=== PATIENT | female | born 1945 | race Caucasian/White ===

== ENCOUNTER 2016-07-12 21:43 | Emergency (ER) | payer OTHER ==
[~2016-07-12] VITALS: Ht 162.6 cm; Wt 81.6 kg
[~2016-07-12 21:43] MED LIST: ASPI325T25 PO; CALC500T87 PO; GABA-494 PO; METH500T6 PO; MORP60TA25 PO; MUPI2OIN EX; TOPI50TA53 PO
[2016-07-12 22:24] LABS: Basophils # (auto) 0 uL; Basophils % (auto) 0.5 % (0.0-2.0); Eosinophils # (auto) 0.1 uL; Eosinophils % (auto) 1.2 % (0.0-7.0); Hematocrit 40.4 % (36.0-46.0); Lymphocytes # (auto) 1.3 uL; Lymphocytes % (auto) 25.4 % (10.0-50.0); Mean Corpuscular Hemoglobin 28.6 pg (28.0-32.0); Mean Corpuscular Hgb Conc. 32.2 g/dL (32.0-36.0); Mean Corpuscular Volume 88.8 fL (80.0-100.0); Mean Platelet Volume 6.5 fL (7.4-10.4); Monocytes # (auto) 0.2 uL; Monocytes % (auto) 4.6 % (0.0-12.0); Neutrophils # (auto) 3.4 uL; Neutrophils % (auto) 68.3 % (37.0-80.0); Platelet Count (auto) 373 10^3/uL (140-450); Red Cell Distribution Width 13.1 % (11.6-16.0)
[2016-07-12] MEDS ORDERED: ONDANSETRON HCL 4 MG/2 ML VIAL IV ONE (22:45)
[2016-07-12] MEDS ORDERED: SODIUM CHLORIDE 0.9% 500 ML IV ONE (22:45)
[2016-07-12 22:46] LABS: Albumin 3.8 g/dL (3.4-5.0); BUN/Creatinine Ratio 30.3; Bilirubin, Total 0.2 mg/dL (0.2-1.0); Calcium 10.1 mg/dL (8.5-10.1); Magnesium 2.3 mg/dL (1.6-2.6); Potassium 4.3 mmol/L (3.5-5.1); Total Protein 8.5 g/dL (6.4-8.2)
[2016-07-12] MEDS ORDERED: HYDROmorphone HCL 2 MG/ML VL ONE (23:12)
[2016-07-12] MEDS ORDERED: HYDROmorphone HCL 2 MG/ML VL IV ONE (23:30)
[2016-07-13] MEDS ORDERED: SODIUM CHLORIDE 0.9% 1,000 ML IV ONE
[2016-07-13 01:09] VITALS: BP 120/66
== END 2016-07-13 02:13 | disposition home or self-care (01) ==
LOC: EDBD 21:43 → ER 21:51
DX: R11.2 Nausea with vomiting, unspecified (principal); J45.909 Unspecified asthma, uncomplicated; I12.9 Hypertensive chronic kidney disease with stage 1 through stage 4 chronic kidney disease, or unspecified chronic kidney disease; N18.9 Chronic kidney disease, unspecified; E78.5 Hyperlipidemia, unspecified; M54.9 Dorsalgia, unspecified; G89.29 Other chronic pain; Z90.710 Acquired absence of both cervix and uterus; Z90.89 Acquired absence of other organs; Z88.6 Allergy status to analgesic agent; Z79.899 Other long term (current) drug therapy; Z79.82 Long term (current) use of aspirin; J44.9 Chronic obstructive pulmonary disease, unspecified; R51 Headache
CPT/HCPCS: 36415; 70450; 72125; 80053; 83735; 84484; 85025; 85049; 93005; 96361; 96374; 96375; 99285; J1170; J2405; J7030; J7040; 96360

== ENCOUNTER 2017-05-18 08:49 | Emergency (ER) | payer OTHER ==
[~2017-05-18] VITALS: Ht 160 cm; Wt 59.0 kg
[2017-05-18 11:35] LABS: Eosinophils # (auto) 0.1 uL; Hemoglobin 10.7 g/dL (12.2-16.2); Mean Corpuscular Hemoglobin 22.6 pg (28.0-32.0); Monocytes # (auto) 0.5 uL; White Blood Cell 5.2 10^3/uL (4.4-10.8)
[2017-05-18 11:37] LABS: Albumin 3.7 g/dL (3.4-5.0); Alkaline Phosphatase 120 U/L (45-117); Anion Gap 12 (5-15); Aspartate Aminotransferase 12 U/L (15-37); BUN/Creatinine Ratio 19.6; Bilirubin, Total 0.3 mg/dL (0.2-1.0); Blood Urea Nitrogen 22 mg/dL (7-18); Carbon Dioxide 25 mmol/L (21-32); Chloride 98 mmol/L (98-107); GFR African American 62 mL/min; GFR Non-African American 51 mL/min; Glucose 102 mg/dL (74-106); Magnesium 2.1 mg/dL (1.6-2.6); Potassium 3.3 mmol/L (3.5-5.1); Sodium 135 mmol/L (136-145); Total Protein 8.4 g/dL (6.4-8.2)
[2017-05-18 11:39] LABS: Basophils # (auto) 0.1 uL; Eosinophils % (auto) 1.1 % (0.0-7.0); Hematocrit 33.7 % (36.0-46.0); Lymphocytes # (auto) 1.8 uL; Lymphocytes % (auto) 34.4 % (10.0-50.0); Mean Corpuscular Hgb Conc. 31.6 g/dL (32.0-36.0); Mean Corpuscular Volume 71.4 fL (80.0-100.0); Mean Platelet Volume 6.6 fL (6.9-10.8); Monocytes % (auto) 9.4 % (0.0-12.0); Neutrophils # (auto) 2.8 uL; Neutrophils % (auto) 54.1 % (37.0-80.0); Nucleated Red Blood Cells % 0.3 %; Platelet Count (auto) 313 10^3/uL (140-450); Red Cell Distribution Width 18.9 % (11.8-14.3)
[2017-05-18] MEDS ORDERED: HYDROcodone-ACET 5/325MG TAB PO ONE (11:45)
[2017-05-18] MEDS ORDERED: LORazepam 0.5 MG TAB PO ONE (11:45)
[2017-05-18 13:03] LABS: B-Type Natriuretic Peptide 21.35 pg/mL (0-100)
[2017-05-18] MEDS ORDERED: IOHEXOL 350 MG/ML 100ML IJ ONE (13:08)
[2017-05-18 14:49] VITALS: BP 116/73
== END 2017-05-18 15:51 | disposition home or self-care (01) ==
LOC: ER 08:49 → EDBD 08:49 → ER 15:51
DX: R07.9 Chest pain, unspecified (principal); F41.9 Anxiety disorder, unspecified; I11.0 Hypertensive heart disease with heart failure; I50.9 Heart failure, unspecified; E78.5 Hyperlipidemia, unspecified; Z88.6 Allergy status to analgesic agent; Z79.899 Other long term (current) drug therapy
CPT/HCPCS: 36415; 71010; 71275; 80053; 83735; 83880; 84484; 85025; 85379; 99285; Q9967

== ENCOUNTER 2018-03-06 14:11 | Emergency (ER) | payer MEDICARE ==
[~2018-03-06] VITALS: Ht 165.1 cm; Wt 56.7 kg
[~2018-03-06 14:11] MED LIST changes: -GABA-494 PO; +GABA100C9 PO
[2018-03-06 15:53] LABS: Basophils # (auto) 0 uL; Basophils % (auto) 0.5 % (0.0-2.0); Eosinophils # (auto) 0.1 uL; Eosinophils % (auto) 1.4 % (0.0-7.0); Hematocrit 42.2 % (36.0-46.0); Hemoglobin 13.9 g/dL (12.2-16.2); Lymphocytes # (auto) 1.1 uL; Lymphocytes % (auto) 31.1 % (10.0-50.0); Mean Corpuscular Hemoglobin 31.7 pg (28.0-32.0); Mean Corpuscular Hgb Conc. 32.9 g/dL (32.0-36.0); Mean Corpuscular Volume 96.5 fL (80.0-100.0); Monocytes # (auto) 0.2 uL; Monocytes % (auto) 6.4 % (0.0-12.0); Neutrophils # (auto) 2.1 uL; Neutrophils % (auto) 60.6 % (37.0-80.0); Nucleated Red Blood Cells % 0.1 %; Platelet Count (auto) 184 10^3/uL (140-450); Red Blood Cells 4.37 10^6/uL (4.0-5.20); Red Cell Distribution Width 14.4 % (11.8-14.3); White Blood Cell 3.5 10^3/uL (4.4-10.8)
[2018-03-06 16:05] LABS: Alanine Aminotransferase 11 U/L (13-56); Albumin 3.4 g/dL (3.4-5.0); Alkaline Phosphatase 80 U/L (45-117); Anion Gap 5 (5-15); Aspartate Aminotransferase 15 U/L (15-37); BUN/Creatinine Ratio 19.5; Bilirubin, Total 0.3 mg/dL (0.2-1.0); Blood Urea Nitrogen 16 mg/dL (7-18); Calcium 8.8 mg/dL (8.5-10.1); Carbon Dioxide 26 mmol/L (21-32); Chloride 109 mmol/L (98-107); GFR African American 88 mL/min; GFR Non-African American 73 mL/min; Glucose 87 mg/dL (74-106); Magnesium 2.2 mg/dL (1.6-2.6); Sodium 140 mmol/L (136-145); Total Protein 7.1 g/dL (6.4-8.2)
[2018-03-06] MEDS ORDERED: SODIUM CHLORIDE 0.9% 500 ML IV ONE (17:15)
[2018-03-06] MEDS ORDERED: LORazepam 2MG/ML-1ML VIAL IV ONE (17:15)
[2018-03-06 17:54] LABS: Urine Bacteria FEW /hpf (None Seen); Urine Blood Negative /uL (Negative); Urine Specific Gravity 1.014 (1.001-1.035); Urine WBC 2 /hpf (0 - 5)
[2018-03-06 19:30] VITALS: BP 150/99
[2018-03-06] MEDS ORDERED: LABETALOL HCL 5 MG/ML ML 20ML VIAL IV ONE (19:30)
== END 2018-03-06 20:44 | disposition home or self-care (01) ==
LOC: ER 14:11
DX: R53.1 Weakness (principal); R42 Dizziness and giddiness; F41.9 Anxiety disorder, unspecified; I11.0 Hypertensive heart disease with heart failure; I50.9 Heart failure, unspecified; F32.9 Major depressive disorder, single episode, unspecified; E78.5 Hyperlipidemia, unspecified; Z90.710 Acquired absence of both cervix and uterus
CPT/HCPCS: 36415; 70450; 71046; 80053; 81001; 83735; 84484; 85025; 93005; 96361; 96374; 96375; 99285; J2060; J7060

== ENCOUNTER 2018-03-17 09:08 | Emergency (ER) | payer MEDICARE ==
[~2018-03-17] VITALS: Ht 165.1 cm; Wt 71.2 kg
[2018-03-17] MEDS ORDERED: SODIUM CHLORIDE 0.9% 1,000 ML IV ONE (09:16)
[2018-03-17] MEDS ORDERED: ONDANSETRON HCL 4 MG/2 ML VIAL IV ONE (09:30)
[2018-03-17 10:11] LABS: Basophils # (auto) 0 uL; Basophils % (auto) 0.4 % (0.0-2.0); Eosinophils # (auto) 0.1 uL; Eosinophils % (auto) 1.3 % (0.0-7.0); Lymphocytes # (auto) 1.6 uL; Lymphocytes % (auto) 30.8 % (10.0-50.0); Mean Corpuscular Hemoglobin 33.1 pg (28.0-32.0); Mean Corpuscular Volume 97.1 fL (80.0-100.0); Monocytes # (auto) 0.5 uL; Monocytes % (auto) 9.1 % (0.0-12.0); Neutrophils # (auto) 3.1 uL; Neutrophils % (auto) 58.4 % (37.0-80.0); Nucleated Red Blood Cells % 0.1 %; Platelet Count (auto) 179 10^3/uL (140-450); Red Blood Cells 4.22 10^6/uL (4.0-5.20); Red Cell Distribution Width 14.2 % (11.8-14.3); White Blood Cell 5.3 10^3/uL (4.4-10.8)
[2018-03-17 10:38] LABS: Alanine Aminotransferase 13 U/L (13-56); Albumin 3.8 g/dL (3.4-5.0); Alkaline Phosphatase 87 U/L (45-117); Anion Gap 4 (5-15); Aspartate Aminotransferase 19 U/L (15-37); Bilirubin, Total 0.3 mg/dL (0.2-1.0); Blood Urea Nitrogen 17 mg/dL (7-18); Carbon Dioxide 28 mmol/L (21-32); Chloride 108 mmol/L (98-107); GFR African American 85 mL/min; GFR Non-African American 70 mL/min; Glucose 114 mg/dL (74-106); Potassium 3.7 mmol/L (3.5-5.1); Sodium 140 mmol/L (136-145); Total Protein 8.2 g/dL (6.4-8.2)
[2018-03-17 12:20] VITALS: BP 123/81
== END 2018-03-17 12:16 | disposition home or self-care (01) ==
LOC: EDBD 09:08 → ER 09:08
DX: G89.4 Chronic pain syndrome (principal); F03.90 Unspecified dementia, unspecified severity, without behavioral disturbance, psychotic disturbance, mood disturbance, and anxiety; R11.2 Nausea with vomiting, unspecified; E78.5 Hyperlipidemia, unspecified; I11.0 Hypertensive heart disease with heart failure; I50.9 Heart failure, unspecified; Z79.899 Other long term (current) drug therapy; Z79.82 Long term (current) use of aspirin; Z87.891 Personal history of nicotine dependence
CPT/HCPCS: 36415; 70450; 71045; 80053; 83880; 84484; 85025; 96361; 96374; 99285; J2405; J7030

== ENCOUNTER → 2018-07-20 | Outpatient (CLI) | payer MEDICARE ==
[2018-07-20 10:03] LABS: Basophils # (auto) 0 uL; Basophils % (auto) 0.7 % (0.0-2.0); Eosinophils # (auto) 0.1 uL; Eosinophils % (auto) 1.6 % (0.0-7.0); Hematocrit 40.9 % (36.0-46.0); Hemoglobin 13.9 g/dL (12.2-16.2); Lymphocytes # (auto) 1.1 uL; Lymphocytes % (auto) 32.2 % (10.0-50.0); Mean Corpuscular Hemoglobin 31.8 pg (28.0-32.0); Mean Corpuscular Hgb Conc. 33.9 g/dL (32.0-36.0); Mean Corpuscular Volume 93.9 fL (80.0-100.0); Monocytes # (auto) 0.3 uL; Monocytes % (auto) 8.8 % (0.0-12.0); Neutrophils # (auto) 1.9 uL; Neutrophils % (auto) 56.7 % (37.0-80.0); Nucleated Red Blood Cells % 0.1 %; Platelet Count (auto) 189 10^3/uL (140-450); Red Blood Cells 4.36 10^6/uL (4.0-5.20); Red Cell Distribution Width 14.2 % (11.8-14.3); White Blood Cell 3.4 10^3/uL (4.4-10.8)
[2018-07-20 10:08] LABS: Anion Gap 8 (5-15); BUN/Creatinine Ratio 19.3; Blood Urea Nitrogen 16 mg/dL (7-18); Calcium 9.3 mg/dL (8.5-10.1); Carbon Dioxide 25 mmol/L (21-32); Chloride 106 mmol/L (98-107); GFR African American > 60 mL/min; GFR Non-African American > 60 mL/min; Glucose 87 mg/dL (74-106); Sodium 139 mmol/L (136-145)
[2018-07-20 10:46] LABS: INR 0.92 (0.9-1.15); Partial Thromboplastin Time 23.8 sec (23.78-33.04); Prothrombin Time 9.9 sec (9.27-12.13)
== END | disposition home or self-care (01) ==
LOC: LAB 08:55
PROVIDERS: ATTEND Anesthesiology Pain Medicine
DX: R79.1 Abnormal coagulation profile (principal); Z79.01 Long term (current) use of anticoagulants
CPT/HCPCS: 36415; 80048; 85025; 85610; 85730

== ENCOUNTER 2018-11-04 16:12 | Inpatient (IN) | payer MEDICARE ==
[~2018-11-04] VITALS: Ht 167.6 cm; Wt 98.6 kg
[2018-11-04] MEDS ORDERED: clonazePAM 0.5 MG TAB PO ONE (18:45)
[2018-11-04 19:12] LABS: Basophils # (auto) 0 uL; Basophils % (auto) 0.5 % (0.0-2.0); Eosinophils # (auto) 0.1 uL; Eosinophils % (auto) 1.4 % (0.0-7.0); Hematocrit 44.4 % (36.0-46.0); Hemoglobin 15.1 g/dL (12.2-16.2); Lymphocytes # (auto) 1.1 uL; Lymphocytes % (auto) 17.8 % (10.0-50.0); Mean Corpuscular Hemoglobin 31.9 pg (28.0-32.0); Mean Corpuscular Hgb Conc. 33.9 g/dL (32.0-36.0); Mean Corpuscular Volume 93.9 fL (80.0-100.0); Monocytes # (auto) 0.7 uL; Monocytes % (auto) 10.8 % (0.0-12.0); Neutrophils # (auto) 4.5 uL; Neutrophils % (auto) 69.5 % (37.0-80.0); Nucleated Red Blood Cells % 0.1 %; Platelet Count (auto) 209 10^3/uL (140-450); Red Blood Cells 4.73 10^6/uL (4.0-5.20); White Blood Cell 6.4 10^3/uL (4.4-10.8)
[2018-11-04 19:26] LABS: INR 0.96 (0.9-1.15); Partial Thromboplastin Time 25.4 sec (23.78-33.04); Prothrombin Time 10.3 sec (9.27-12.13)
[2018-11-04 19:36] LABS: Chloride 103 mmol/L (98-107); Potassium 3.6 mmol/L (3.5-5.1); Sodium 138 mmol/L (136-145)
[2018-11-04 19:41] LABS: Albumin 3.9 g/dL (3.4-5.0); Anion Gap 10 (5-15); BUN/Creatinine Ratio 34.6; Blood Alcohol < 3.0 mg/dL (0-5); Blood Urea Nitrogen 55 mg/dL (7-18); Calcium 10.2 mg/dL (8.5-10.1); Carbon Dioxide 25 mmol/L (21-32); GFR African American 41 mL/min; GFR Non-African American 34 mL/min; Glucose 105 mg/dL (74-106)
[2018-11-04 19:55] LABS: Alanine Aminotransferase 14 U/L (13-56); Alkaline Phosphatase 99 U/L (45-117); Aspartate Aminotransferase 21 U/L (15-37); Bilirubin, Total 0.4 mg/dL (0.2-1.0); Total Protein 8.4 g/dL (6.4-8.2)
[2018-11-04] MEDS ORDERED: MORPHINE SULF INJ 2 MG/ML SYRINGE 1ML IV PRN (20:15)
[2018-11-04] MEDS ORDERED: ACETAMINOPHEN 500 MG TAB PO PRN (20:15)
[2018-11-04] MEDS ORDERED: NITROGLYCERIN 0.4 MG SL TAB SL PRN (20:15)
[2018-11-04] MEDS ORDERED: LACTULOSE 20Gm/30ML SOLN PO PRN (20:15)
[2018-11-04] MEDS ORDERED: ONDANSETRON HCL 4 MG/2 ML VIAL IV PRN (20:15)
[2018-11-04] MEDS: cefTRIAXone 1GM/50ML D5W 50 ML IV SCH (21:21)
[2018-11-04] MEDS: SODIUM CHLORIDE 0.9% 1,000 ML IV SCH (21:21)
[2018-11-04] MEDS ORDERED: ATORVASTATIN 20 MG TAB PO SCH (22:00)
[2018-11-04] MEDS ORDERED: PATIENTS OWN MEDICATION (Topiramate 50 MG) PO SCH (22:00)
[2018-11-04] MEDS ORDERED: GABAPENTIN 100 MG PO SCH (22:00)
[2018-11-04] MEDS ORDERED: MORPHINE SULFATE 60 MG PO SCH (22:00)
[2018-11-04] MEDS: CLINDAMYCIN 600MG IV 50 ML IV SCH (22:25)
[2018-11-04] MEDS: METOPROLOL TARTRATE 25 MG TAB PO SCH (22:28)
[2018-11-04] MEDS: TOPIRAMATE 25 MG TAB PO SCH (22:28)
[2018-11-04] MEDS: ATORVASTATIN 20 MG TAB PO SCH (22:29)
[2018-11-04] MEDS: GABAPENTIN 100 MG CAP PO SCH (22:29)
[2018-11-04 23:00] VITALS: BP 125/81
--- NOTE | 2018-11-04 23:00 | NUR ---
Telemetry admit from ER Patient admitted to Telemetry unit after SBAR received. Patient oriented to primary RN, unit, room, bed, and unit policies regarding patient care and visiting hours. Patient now on continuous telemetry monitoring, tele box # 17 and telemetry reading on arrival to unit is sinus rhythm. Patient weighed by bedscale and encouraged to call if they need something. Bed is in lowest position and locked. Call light within reach. Board updated. Bed alarm on. All questions and concerns addressed, patient verbalized understanding, but is partially confused.
[2018-11-04] MEDS: traMADol HCL 50 MG TAB PO PRN (23:24)
[2018-11-05] VITALS (7 sets, daily range): BP systolic 89–130; BP diastolic 47–65
[2018-11-05] MEDS: CARISOPRODOL 350 MG TAB PO PRN ×2 (00:04→11:35)
[2018-11-05] MEDS ORDERED: CYCL5TAB PO (00:17)
[2018-11-05] MEDS ORDERED: BACL20TA PO (00:17)
[2018-11-05] MEDS ORDERED: POM (00:17)
[2018-11-05] MEDS: GABAPENTIN 100 MG CAP PO SCH ×3 (05:00→21:36)
[2018-11-05] MEDS: traMADol HCL 50 MG TAB PO PRN ×2 (05:00→18:28)
[2018-11-05] MEDS: CLINDAMYCIN 600MG IV 50 ML IV SCH ×2 (05:01→14:15)
[2018-11-05 05:17] LABS: Alcohol, Urine < 3.0 mg/dL (0-5); Amphetamine Screen, Urine NEGATIVE (NEGATIVE); Barbiturate Scree,Urine NEGATIVE (NEGATIVE); Benzodiazephine Screen, Urine NEGATIVE (NEGATIVE); Cannabinoid Screen, Urine NEGATIVE (NEGATIVE); Cocaine Screen, Urine NEGATIVE (NEGATIVE); Opiate Scree,Urine NEGATIVE (NEGATIVE); Phencyclidine Screen, Urine NEGATIVE (NEGATIVE); Urine Bacteria NONE SEEN /hpf (None Seen); Urine Blood Negative /uL (Negative); Urine Specific Gravity 1.025 (1.001-1.035); Urine WBC 46 /hpf (0 - 5)
[2018-11-05 06:30] LABS: Albumin 3.2 g/dL (3.4-5.0); Calcium 8.9 mg/dL (8.5-10.1); Potassium 3.2 mmol/L (3.5-5.1)
[2018-11-05] MEDS: SODIUM CHLORIDE 0.9% 1,000 ML IV SCH ×2 (06:30→16:10)
[2018-11-05 06:33] LABS: BUN/Creatinine Ratio 41.3; Bilirubin, Total 0.6 mg/dL (0.2-1.0); Total Protein 6.5 g/dL (6.4-8.2)
--- NOTE | 2018-11-05 07:50 | NUR ---
REPORT REPORT RECEIVED FROM [facility] RN TO TEMPORARILY COVER FOR DAY SHIFT RN. Patient, awake and alert. No S/S of distress/SOB or pain. Instructed on POC and to call for assist PRN, will continue to monitor for changes Q1hr and PRN.
--- NOTE | 2018-11-05 09:09 | NUR ---
REPORT GIVEN TO RK QUINTERO
[2018-11-05] MEDS: cefTRIAXone 1GM/50ML D5W 50 ML IV SCH (09:26)
[2018-11-05] MEDS ORDERED: ENOXAPARIN SOD 40 MG/0.4 ML SYRINGE SC SCH (10:00)
[2018-11-05] MEDS: METOPROLOL TARTRATE 25 MG TAB PO SCH ×2 (10:00→21:37)
[2018-11-05] MEDS: PANTOPRAZOLE 40 MG TAB PO SCH (10:07)
[2018-11-05] MEDS: ASPirin-EC 325mg tab PO SCH (10:07)
--- NOTE | 2018-11-05 17:10 | NUR ---
IV insertion IV access obtained, via clean sterile technique by inserting 22 gauge catheter at after attempt(s). IV secured properly. No trauma to site. Patient tolerated well.
--- NOTE | 2018-11-05 18:44 | NUR ---
Override Golytely at this time, give to patient, instructed to drink 8 Oz every 15 mins untill patient has BM, patient verbalized understanding.
[2018-11-05] MEDS ORDERED: POTASSIUM CHL 10 Meq TABLET PO ONE (19:30)
--- NOTE | 2018-11-05 19:34 | NUR ---
Opening Shift Note Assumed care of patient, awake and alert x4. No S/S of distress/SOB or pain. Instructed on POC and to call for assistance PRN, will continue to monitor for changes Q1hr and PRN.
[2018-11-05] MEDS: ATORVASTATIN 20 MG TAB PO SCH (21:36)
[2018-11-05] MEDS: TOPIRAMATE 25 MG TAB PO SCH (21:36)
[2018-11-05] MEDS: TEMAZEPAM 15 MG CAP PO PRN (21:42)
--- NOTE | 2018-11-06 04:55 | NUR ---
Rounds Patient sleeping respirations even and unlabored. No S/S of distress/SOB or pain. Will continue to monitor changes q1hr and PRN.
[2018-11-06 05:00] VITALS: BP 100/60
[2018-11-06] MEDS: GABAPENTIN 100 MG CAP PO SCH ×3 (06:02→21:31)
[2018-11-06] MEDS: traMADol HCL 50 MG TAB PO PRN ×2 (06:12→12:56)
--- NOTE | 2018-11-06 09:00 | NUR ---
Opening Shift Note Assumed care of patient, awake and alert. No S/S of distress/SOB or pain. Instructed on POC and to call for assist PRN, will continue to monitor for changes Q1hr and PRN.
[2018-11-06] MEDS: PANTOPRAZOLE 40 MG TAB PO SCH (09:27)
[2018-11-06] MEDS: cefTRIAXone 1GM/50ML D5W 50 ML IV SCH (09:27)
[2018-11-06] MEDS: METOPROLOL TARTRATE 25 MG TAB PO SCH ×2 (09:27→21:30)
[2018-11-06] MEDS: ASPirin-EC 325mg tab PO SCH (09:27)
[2018-11-06 09:36] VITALS: BP 124/67
[2018-11-06] MEDS ORDERED: ENOXAPARIN SOD 40 MG/0.4 ML SYRINGE SC SCH (10:00)
[2018-11-06 12:46] VITALS: BP 105/59
[2018-11-06 13:15] LABS: Basophils # (auto) 0 uL; Basophils % (auto) 1.3 % (0.0-2.0); Eosinophils # (auto) 0.2 uL; Eosinophils % (auto) 5.4 % (0.0-7.0); Hematocrit 40.7 % (36.0-46.0); Hemoglobin 13.4 g/dL (12.2-16.2); Lymphocytes % (auto) 36.3 % (10.0-50.0); Mean Corpuscular Hemoglobin 31.6 pg (28.0-32.0); Mean Corpuscular Hgb Conc. 32.9 g/dL (32.0-36.0); Mean Corpuscular Volume 96.1 fL (80.0-100.0); Monocytes # (auto) 0.3 uL; Monocytes % (auto) 9.7 % (0.0-12.0); Neutrophils # (auto) 1.4 uL; Neutrophils % (auto) 47.3 % (37.0-80.0); Platelet Count (auto) 159 10^3/uL (140-450); Red Blood Cells 4.23 10^6/uL (4.0-5.20); Red Cell Distribution Width 14.1 % (11.8-14.3); White Blood Cell 2.9 10^3/uL (4.4-10.8)
[2018-11-06 13:30] LABS: BUN/Creatinine Ratio 32.6; Calcium 8.9 mg/dL (8.5-10.1); Potassium 4.2 mmol/L (3.5-5.1)
[2018-11-06 16:36] VITALS: BP 113/62
[2018-11-06] MEDS: ATORVASTATIN 20 MG TAB PO SCH (21:31)
[2018-11-06] MEDS: TOPIRAMATE 25 MG TAB PO SCH (21:31)
[2018-11-06 22:00] VITALS: BP 103/57
[2018-11-07 05:00] VITALS: BP 114/56
[2018-11-07] MEDS: GABAPENTIN 100 MG CAP PO SCH ×3 (06:54→22:40)
--- NOTE | 2018-11-07 07:50 | NUR ---
PT RESTING IN BED, PT REPORTS 8/10 PAIN IN BACK. PT IS A AND O X4. PT KNOWS NAME, , WHEREABOUTS AND THE PRESIDENT. PT ON MORPHINE PUMP, WILL CHECK PAIN MEDICATION ORDERS. PT INSTRUCTED TO USE CALL LIGHT FOR ASSISTANCE TO BEDSIDE COMMODE. PT AGREED. SPOKE WITH DR MASSEY, PT TO HAVE BILATERAL PERIPHERAL ANGIOGRAM TOMORROW, PT AWARE. WILL CONTINUE TO MONITOR.
[2018-11-07 08:00] VITALS: BP 124/80
[2018-11-07] MEDS: cefTRIAXone 1GM/50ML D5W 50 ML IV SCH (09:25)
[2018-11-07] MEDS: ASPirin-EC 325mg tab PO SCH (09:25)
[2018-11-07] MEDS: traMADol HCL 50 MG TAB PO PRN ×2 (09:25→15:33)
[2018-11-07] MEDS: METOPROLOL TARTRATE 25 MG TAB PO SCH ×2 (09:26→22:40)
[2018-11-07] MEDS: PANTOPRAZOLE 40 MG TAB PO SCH (09:26)
[2018-11-07] MEDS: SODIUM CHLORIDE 0.9% 1,000 ML IV SCH (09:27)
--- NOTE | 2018-11-07 10:11 | NUR ---
PT CALLED FOR ASSISTANCE TO COMMODE, HELPED PT TO COMMODE, PT VOIDED AND ASSISTED PT BACK TO BED.
[2018-11-07 12:32] VITALS: BP_SYST 111; BP_SYST 125; BP_DIAS 50; BP_DIAS 63
--- NOTE | 2018-11-07 13:00 | NUR ---
PT REPORTS SHE DIDN'T RECEIVE A LUNCH TRAY, CALLED DIETARY, LUNCH TRAY BROUGHT TO PATIENT, WILL CONTINUE TO MONITOR.
--- NOTE | 2018-11-07 15:49 | NUR ---
PT REPORTS SHE DOES NOT WANT PROCEDURE TOMORROW. SHE REPORTS, SHE'S "SORRY BUT SHE'S FEELING RUSHED AND OVERWHELMED." CONSENTS PRINTED AND IN CHART UNSIGNED, WILL CONTINUE TO MONITOR.
[2018-11-07 16:35] VITALS: BP 112/76
--- NOTE | 2018-11-07 19:10 | NUR ---
OPEN SHIFT NOTE PATIENT ALERT AND ORIENTED X4, ON ROOM AIR, LEFT HAND 22 GAUGE IS INTACT AND PATENT. COMMODE AT BEDSIDE. POC DISCUSSED AND QUESTIONS ANSWERED. BED IS LOCKED IN LOWEST POSITION WITH SIDE RAILS UP X2 FOR SAFETY. CALL LIGHT IS WITHIN REACH AND PATIENT ENCOURAGED TO CALL IF NEEDS ANYTHING. WILL CONTINUE TO ROUND Q1HR AND PRN
[2018-11-07 22:20] VITALS: BP 129/66
[2018-11-07] MEDS: ATORVASTATIN 20 MG TAB PO SCH (22:39)
[2018-11-07] MEDS: TOPIRAMATE 25 MG TAB PO SCH (22:40)
[2018-11-07] MEDS: TEMAZEPAM 15 MG CAP PO PRN (22:46)
[2018-11-08 04:45] VITALS: BP 111/55
--- NOTE | 2018-11-08 05:00 | NUR ---
IV removal IV DC'd with clean sterile technique, catheter fully intact. Pressure dressing applied to site. Patient tolerated well.
--- NOTE | 2018-11-08 05:15 | NUR ---
IV insertion IV access obtained, via clean sterile technique by inserting 22 gauge catheter in the right forearm after 2 attempt(s). IV secured properly. No trauma to site. Patient tolerated well.
[2018-11-08] MEDS: SODIUM CHLORIDE 0.9% 1,000 ML IV SCH (05:25)
[2018-11-08] MEDS: GABAPENTIN 100 MG CAP PO SCH ×3 (05:38→21:34)
[2018-11-08 06:38] LABS: INR 0.93 (0.9-1.15); Partial Thromboplastin Time 28.1 sec (23.78-33.04)
[2018-11-08] MEDS: traMADol HCL 50 MG TAB PO PRN ×3 (06:45→21:35)
--- NOTE | 2018-11-08 07:17 | NUR ---
PT A AND O X 4 RESTING IN BED. PT CONSENTS SIGNED AND PREOP IS TAKING PATIENT DOWN NOW FOR PROCEDURE, NO DISTRESS NOTED, WILL CONTINUE TO MONITOR.
[2018-11-08] MEDS ORDERED: IODIXANOL 320MG/ML 100ML BTL IV ONE ×2 (07:26→08:09)
[2018-11-08] MEDS ORDERED: LIDOCAINE 2%HCL (LOCAL ANESTH.) INJ 20ML MDV ONE (07:26)
[2018-11-08] MEDS ORDERED: fentaNYL CITRATE 100 MCG/2 ML VL ONE (07:28)
[2018-11-08] MEDS ORDERED: ANGIOMAX 250 MG VIAL IV ONE (07:28)
[2018-11-08] MEDS ORDERED: MIDAZOLAM HCL 1MG/1ML-2 ML VIAL ONE (07:29)
[2018-11-08] MEDS ORDERED: IOHEXOL 350 MG/ML 100ML IJ ONE (07:29)
[2018-11-08] MEDS ORDERED: SODIUM CHL 0.9% 0 ML ONE (07:29)
[2018-11-08] MEDS ORDERED: VERAPAMIL 2.5MG/ML INJ 2ML VIAL IV ONE (07:54)
[2018-11-08] MEDS ORDERED: ATROPINE SULFATE 1 MG/1 ML VIAL ONE (08:03)
[2018-11-08 08:19] VITALS: BP 100/51
--- NOTE | 2018-11-08 09:25 | NUR ---
PT RETURNED TO FLOOR NO DISTRESS NOTED. PT RIGHT GROIN INCION CLEAN DR, AND INTACT, NO DRAINAGE NOTED. SITE SOFT AND PALPABLE, NO SIGNS OF ERYTHEMA OR ECCHYMOSIS. VITALS 97.5, BP 112/72, HR 49, 02 100, RR 12. PT DENIES PAIN AT THIS TIME, WILL CONTINUE TO MONITOR.
[2018-11-08] MEDS: cefTRIAXone 1GM/50ML D5W 50 ML IV SCH (09:41)
[2018-11-08] MEDS: ASPirin-EC 325mg tab PO SCH (09:44)
[2018-11-08] MEDS: PANTOPRAZOLE 40 MG TAB PO SCH (09:44)
[2018-11-08] MEDS: METOPROLOL TARTRATE 25 MG TAB PO SCH (09:44)
--- NOTE | 2018-11-08 10:18 | NUR ---
Called lab to make sure they received urine for culture. lab reports they received it and results should be ready today.
--- NOTE | 2018-11-08 10:46 | NUR ---
NOTIFIED DR BURTON PT HR RUNNING FROM 40'S TO 70'S. AWARE, NO NEW ORDERS.
[2018-11-08] MEDS ORDERED: MORPHINE SULF INJ 2 MG/ML SYRINGE 1ML IV PRN (11:15)
[2018-11-08 12:29] VITALS: BP 143/84
--- NOTE | 2018-11-08 13:16 | NUR ---
CHECKED PT INCISION SITE, BANDAGE CLEAN, DRY AND INTACT, NO BLOOD NOTED, WILL CONTINUE TO MONITOR.
--- NOTE | 2018-11-08 14:58 | NUR ---
Nutrition Assessment Notes please see attached link for complete assessment Est. Needs based on BW (65 kg): 3536-1721 kcal (25-30 kcal/kgBW), 65-78 gms pro (1.0-1.2 gms/kgBW). Will continue to monitor pertinent labs and reassess nutrient need prn Addendum: 11/08/18 at [address] Amended: Links added.
[2018-11-08 16:45] VITALS: BP 114/63
--- NOTE | 2018-11-08 19:00 | NUR ---
OPEN SHIFT NOTE PATIENT ALERT AND ORIENTED X4, ON ROOM AIR, IV INTACT AND PATENT. COMMODE AT BEDSIDE. PATIENT IS S/P PERIPHERAL ANGIOGRAM WITH NO INTERVENTIONS DONE, DRESSING IS DRY AND INTACT. POC DISCUSSED AND QUESTIONS ANSWERED. BED IS LOCKED IN LOWEST POSITION WITH SIDE RAILS UP X2 FOR SAFETY. CALL LIGHT IS WITHIN REACH AND PATIENT IS ENCOURAGED TO CALL IF NEEDS ANYTHING. WILL CONTINUE TO ROUND Q1HR AND PRN.
[2018-11-08] MEDS: ATORVASTATIN 20 MG TAB PO SCH (21:33)
[2018-11-08] MEDS: TEMAZEPAM 15 MG CAP PO PRN (21:34)
[2018-11-08] MEDS: TOPIRAMATE 25 MG TAB PO SCH (21:34)
[2018-11-08 22:15] VITALS: BP 116/65
[2018-11-09] MEDS: SODIUM CHLORIDE 0.9% 1,000 ML IV SCH (01:22)
[2018-11-09] MEDS: traMADol HCL 50 MG TAB PO PRN ×2 (04:59→13:59)
[2018-11-09] MEDS: GABAPENTIN 100 MG CAP PO SCH ×2 (05:26→13:58)
[2018-11-09 05:51] VITALS: BP 91/50
--- NOTE | 2018-11-09 07:40 | NUR ---
Opening Shift Note Assumed care of patient, awake and alert. No S/S of distress/SOB or pain. Instructed on POC and to call for assist PRN. Bed in low and locked position, call light within reach. Will continue to monitor for changes Q1hr and PRN. Signed: 11/09/18 at 1054 by SN BUSHRA <Co-Signature Required> Co-Signed: 11/09/18 at 1054 by Shanique Sanders RN
[2018-11-09 08:00] VITALS: BP 99/50
[2018-11-09 09:00] VITALS: BP 99/50
--- NOTE | 2018-11-09 09:24 | NUR ---
CARDIOLOGY DR MASSEY AT BEDSIDE, CLEARED PATIENT FOR DISCHARGE, CONT CARE
[2018-11-09] MEDS: ASPirin-EC 325mg tab PO SCH (09:35)
[2018-11-09] MEDS: PANTOPRAZOLE 40 MG TAB PO SCH (09:35)
[2018-11-09] MEDS: cefTRIAXone 1GM/50ML D5W 50 ML IV SCH (09:36)
--- NOTE | 2018-11-09 09:50 | NUR ---
MD DR BURTON AT BEDSIDE, DISCUSSING POC WITH PT AND PHYSICAL THERAPY, PT CURRENTLY REFUSING SNF OR HOME HEALTH, [facility]
[2018-11-09] MEDS ORDERED: ATOR20TA50 PO (10:09)
--- NOTE | 2018-11-09 11:30 | NUR ---
ACTIVITY PT ABLE TO TRANSFER TO BSC WITH MINIMAL ASSIST, PT TOLERATED WELL, NO C/O CP, SOB OR ANY OTHER DISCOMFORT, PT ASSISTED BACK TO BED, CALL LIGHT WITHIN REACH, CONT CARE
[2018-11-09 16:19] VITALS: BP 108/62
[2018-11-09 16:31] VITALS: BP 108/62
--- NOTE | 2018-11-09 17:47 | NUR ---
DISCHARGE Discharge instructions given as ordered. Encourage to follow up with PMD as instructed. Appointment made to follow up with Dr Dee 11/16/18 @ 10:15, contact and address provided. All questions and concerns addressed. Patient verbalized understanding. Medication reconciliation form completed and copy given to patient. Home medications held in Pharmacy returned to patient. IV removed with catheter intact, pressure dressing applied. Telemetry unit returned to ICU. Patient taken to vehicle via wheelchair with all personal belongings, accompanied by staff and family member. No distress noted at time of departure.
== END 2018-11-09 17:45 | disposition home or self-care (01) | DRG 70 ==
LOC: ER 16:15 → TELE 20:15 → TELE-WESTW 22:48
PROVIDERS: ADMIT Internal Medicine; ATTEND Internal Medicine
PROC: B41G1ZZ Fluoroscopy of Left Lower Extremity Arteries using Low Osmolar Contrast (ICD-10-PCS; principal; 2018-11-08)
PROC: B41F1ZZ Fluoroscopy of Right Lower Extremity Arteries using Low Osmolar Contrast (ICD-10-PCS; 2018-11-08)
DX: G93.41 Metabolic encephalopathy (principal); N17.0 Acute kidney failure with tubular necrosis; L03.115 Cellulitis of right lower limb; F11.20 Opioid dependence, uncomplicated; N39.0 Urinary tract infection, site not specified; E44.1 Mild protein-calorie malnutrition; L03.116 Cellulitis of left lower limb; Z86.73 Personal history of transient ischemic attack (TIA), and cerebral infarction without residual deficits; I10 Essential (primary) hypertension; F32.9 Major depressive disorder, single episode, unspecified; F41.9 Anxiety disorder, unspecified; E86.0 Dehydration; F03.90 Unspecified dementia, unspecified severity, without behavioral disturbance, psychotic disturbance, mood disturbance, and anxiety; Z68.35 Body mass index [BMI] 35.0-35.9, adult; E78.5 Hyperlipidemia, unspecified; G62.9 Polyneuropathy, unspecified; G89.29 Other chronic pain; Z79.82 Long term (current) use of aspirin; Z80.3 Family history of malignant neoplasm of breast; Z82.49 Family history of ischemic heart disease and other diseases of the circulatory system; Z83.3 Family history of diabetes mellitus; Z90.710 Acquired absence of both cervix and uterus; R32 Unspecified urinary incontinence
CPT/HCPCS: 36415; 70450; 71045; 80048; 80053; 80307; 80320; 81001; 82550; 82607; 84443; 84484; 85025; 85610; 85652; 85730; 86850; 86900; 86901; 87081; 87086; 87088; 87186; 93005; 93926; 93970; 94761; 97163; 99152; G0378; J0461; J0696; J2250; J3490; Q9967

== ENCOUNTER → 2020-01-08 | Outpatient (CLI) | payer MEDICARE ==
[~2020-01-08] MED LIST changes: +ATOR20TA50 PO; +BACL20TA PO; +CYCL5TAB PO; +FUROSEMIDE 100 MG/10ML VIAL IV ONE; +FUROSEMIDE 20 MG/2 ML VIAL ONE; +FUROSEMIDE INJECTION 10 ML ONE; +METH500T22 PO; -METH500T6 PO; +MORP1TAB14 PO; -MORP60TA25 PO; +POM; +POTASSIUM EFFERVESENT TAB 25 MEQ GT ONE; +POTASSIUM EFFERVESENT TAB 25 MEQ ONE
--- NOTE | 2020-01-08 16:45 | NUR ---
PT. TO [facility] FROM BACK OFFICE FOR IV DIURETIS PER DR. SAUER CAREGIVER WITH PT. AOX4, PWD WITH NO SPECIFIC C/O OTHER THAN SWOLLEN LOWER EXT. BILAT. SEE NSG ASSESS. ORDERS RECEIVED AND CARRIED OUT.
--- NOTE | 2020-01-08 16:56 | NUR ---
MEDS: LABS DRAWN AND SENT PER MD ORDER. PT. MEDICATED WITH LASIX 120MG SIVP PER MD ORDER.
--- NOTE | 2020-01-08 16:58 | NUR ---
MEDS: PT. MEDICATED WITH EFFERVESCENT POT. 25 MEQ PO PER MD ORDER.
[2020-01-08 17:25] VITALS: BP 126/64
--- NOTE | 2020-01-08 17:25 | NUR ---
Discharge Instructions See e-MAR for any mediations given with this visit. Patient education given on disease process. Patient verbalized understanding. Previous labs reviewed. Patient discharged in stable condition with after care instructions and follow up appointment. PT TOLERATED MEDS WELL. THIS RN WILL CALL PT. FOR LAB FOLLOW UP.
[2020-01-09 12:33] LABS: BUN/Creatinine Ratio 26.4; Potassium 4.6 mmol/L (3.5-5.1)
== END | disposition home or self-care (01) ==
LOC: CHF HDHVI 16:39
PROVIDERS: ATTEND Internal Medicine Cardiovascular Disease
DX: I50.23 Acute on chronic systolic (congestive) heart failure (principal); E83.40 Disorders of magnesium metabolism, unspecified; D64.9 Anemia, unspecified; Z79.899 Other long term (current) drug therapy
CPT/HCPCS: 36415; 80048; 83735; 83880; 96374; G0463; J1940

== ENCOUNTER → 2020-01-12 | Outpatient (CLI) | payer MEDICARE ==
[~2020-01-12] MED LIST changes: -FUROSEMIDE 100 MG/10ML VIAL IV ONE; -FUROSEMIDE 20 MG/2 ML VIAL ONE; -FUROSEMIDE INJECTION 10 ML ONE; -POTASSIUM EFFERVESENT TAB 25 MEQ GT ONE; -POTASSIUM EFFERVESENT TAB 25 MEQ ONE
== END | disposition home or self-care (01) ==
LOC: Rad HDHVI 15:01
PROVIDERS: ATTEND Internal Medicine Cardiovascular Disease
DX: I25.10 Atherosclerotic heart disease of native coronary artery without angina pectoris (principal); I48.0 Paroxysmal atrial fibrillation; R06.02 Shortness of breath
CPT/HCPCS: 93306

== ENCOUNTER → 2020-01-15 | Outpatient (CLI) | payer MEDICARE ==
[~2020-01-15] VITALS: Ht 157.5 cm; Wt 56.2 kg
[~2020-01-15] MED LIST changes: +ADENOSINE 47 MG in GIVE UN-DILUTED 0 ML IV ONE; +ADENOSINE 90 MG/30 ML INJ IV ONE
== END | disposition home or self-care (01) ==
LOC: Rad HDHVI 13:02
PROVIDERS: ATTEND Internal Medicine Cardiovascular Disease
DX: M54.5 Low back pain (principal); R07.9 Chest pain, unspecified; Z82.49 Family history of ischemic heart disease and other diseases of the circulatory system
CPT/HCPCS: 78452; 93005; 96374; 96375; A9500; J0153

== ENCOUNTER → 2020-01-19 | Emergency (ER) | payer MEDICARE ==
[~2020-01-19] VITALS: Ht 157.5 cm; Wt 54.4 kg
[~2020-01-19] MED LIST changes: -ADENOSINE 47 MG in GIVE UN-DILUTED 0 ML IV ONE; -ADENOSINE 90 MG/30 ML INJ IV ONE
[2020-01-20 06:20] VITALS: BP 126/74
== END | disposition home or self-care (01) ==
LOC: EDUNIT# 23:19 → EDBD 23:35 → ER 23:40
DX: M54.5 Low back pain (principal); G89.29 Other chronic pain; M19.90 Unspecified osteoarthritis, unspecified site; I10 Essential (primary) hypertension; E78.5 Hyperlipidemia, unspecified
CPT/HCPCS: 71250; 72125; 72131

== ENCOUNTER 2021-09-06 13:02 | Emergency (ER) | payer MEDICARE ==
[~2021-09-06] VITALS: Ht 160 cm; Wt 58.1 kg
[~2021-09-06 13:02] MED LIST changes: +CYCL-837 PO; -CYCL5TAB PO
[2021-09-06 13:36] VITALS: BP 132/59
[2021-09-06] MEDS ORDERED: ACETAMINOPHEN 500 MG TAB PO ONE (14:45)
[2021-09-06] MEDS ORDERED: ACET-1080 PO (14:57)
== END 2021-09-06 16:01 | disposition home or self-care (01) ==
LOC: ER 13:02
DX: S42.301A Unspecified fracture of shaft of humerus, right arm, initial encounter for closed fracture (principal); Y04.2XXA Assault by strike against or bumped into by another person, initial encounter; Y93.89 Activity, other specified; Y92.89 Other specified places as the place of occurrence of the external cause; Y99.8 Other external cause status
CPT/HCPCS: 29105; 73030

== ENCOUNTER → 2021-11-18 | Outpatient (CLI) | payer MEDICARE ==
[~2021-11-18] MED LIST changes: +ACET-1080 PO
[2021-11-18 10:27] LABS: Basophils # (auto) 0.1 10 ^3/uL (0-0.2); Basophils % (auto) 1.8 % (0.0-2.0); Eosinophils # (auto) 0.1 10 ^3/uL (0-0.8); Eosinophils % (auto) 3.5 % (0.0-7.0); Hematocrit 36.6 % (36.0-46.0); Hemoglobin 12.6 g/dL (12.2-16.2); Lymphocytes # (auto) 1.2 10 ^3/uL (0.4-5.4); Lymphocytes % (auto) 29.3 % (10.0-50.0); Mean Corpuscular Hemoglobin 32.8 pg (28.0-32.0); Mean Corpuscular Hgb Conc. 34.4 g/dL (32.0-36.0); Mean Corpuscular Volume 95.3 fL (80.0-100.0); Monocytes # (auto) 0.3 10 ^3/uL (0-1.3); Monocytes % (auto) 6.7 % (0.0-12.0); Neutrophils # (auto) 2.5 10 ^3/uL (1.6-8.6); Neutrophils % (auto) 58.7 % (37.0-80.0); Red Blood Cells 3.84 10^6/uL (4.0-5.20); Red Cell Distribution Width 14.2 % (11.8-14.3); White Blood Cell 4.2 10^3/uL (4.4-10.8)
[2021-11-18 10:33] LABS: Urine Bacteria FEW /hpf (None Seen); Urine Blood Negative /uL (Negative); Urine Hyaline Cast FEW /lpf (0 - 2); Urine Specific Gravity 1.027 (1.001-1.035); Urine WBC 8 /hpf (0 - 5)
[2021-11-18 10:43] LABS: INR 0.96 (0.9-1.15); Partial Thromboplastin Time 26.2 sec (23.6-33.0)
[2021-11-18 10:56] LABS: Albumin 3.4 g/dL (3.4-5.0); Calcium 9.3 mg/dL (8.5-10.1); Potassium 3.9 mmol/L (3.5-5.1)
[2021-11-18 11:01] LABS: BUN/Creatinine Ratio 29.4; Bilirubin, Total 0.4 mg/dL (0.2-1.0); Total Protein 7.6 g/dL (6.4-8.2)
== END | disposition home or self-care (01) ==
LOC: LAB 09:19
PROVIDERS: ATTEND Internal Medicine
DX: I10 Essential (primary) hypertension (principal); E55.9 Vitamin D deficiency, unspecified; R06.02 Shortness of breath
CPT/HCPCS: 36415; 80053; 80061; 81001; 82306; 84439; 84443; 85025; 85610; 85652; 85730

== ENCOUNTER → 2021-11-20 | Outpatient (CLI) | payer MEDICARE ==
[~2021-11-20] MED LIST changes: +IOHEXOL 180 MG/ML 20ML VIAL IJ ONE; +LIDOCAINE 2%HCL (LOCAL ANESTH.) INJ 10ml MDV ONE
== END | disposition home or self-care (01) ==
LOC: XY 09:03
PROVIDERS: ATTEND Orthopaedic Surgery Adult Reconstructive Orthopaedic Surgery
DX: M19.011 Primary osteoarthritis, right shoulder (principal); M99.13 Subluxation complex (vertebral) of lumbar region
CPT/HCPCS: 73020; 73200; 76000; J2001; Q9965

== ENCOUNTER 2021-11-27 14:57 | Inpatient (IN) | payer MEDICARE ==
[~2021-11-27] VITALS: Ht 165.1 cm; Wt 60.0 kg
[~2021-11-27 14:57] MED LIST changes: -IOHEXOL 180 MG/ML 20ML VIAL IJ ONE; -LIDOCAINE 2%HCL (LOCAL ANESTH.) INJ 10ml MDV ONE
[2021-11-27] MEDS ORDERED: ASPirin 325 MG TAB PO ONE (19:00)
[2021-11-27 22:30] LABS: Basophils # (auto) 0 10 ^3/uL (0-0.2); Basophils % (auto) 1.1 % (0.0-2.0); Eosinophils # (auto) 0.2 10 ^3/uL (0-0.8); Eosinophils % (auto) 3.6 % (0.0-7.0); Hematocrit 36.1 % (36.0-46.0); Hemoglobin 12.5 g/dL (12.2-16.2); Lymphocytes # (auto) 1.5 10 ^3/uL (0.4-5.4); Lymphocytes % (auto) 35.2 % (10.0-50.0); Mean Corpuscular Hemoglobin 33.1 pg (28.0-32.0); Mean Corpuscular Hgb Conc. 34.5 g/dL (32.0-36.0); Mean Corpuscular Volume 95.8 fL (80.0-100.0); Monocytes # (auto) 0.3 10 ^3/uL (0-1.3); Monocytes % (auto) 7.7 % (0.0-12.0); Neutrophils # (auto) 2.3 10 ^3/uL (1.6-8.6); Neutrophils % (auto) 52.4 % (37.0-80.0); Nucleated Red Blood Cells % 0.1 %; Red Blood Cells 3.77 10^6/uL (4.0-5.20); White Blood Cell 4.3 10^3/uL (4.4-10.8)
[2021-11-27 22:48] LABS: Albumin 3.7 g/dL (3.4-5.0); BUN/Creatinine Ratio 17.2; Calcium 9.2 mg/dL (8.5-10.1); Potassium 3.6 mmol/L (3.5-5.1)
[2021-11-27 22:51] LABS: Bilirubin, Total 0.3 mg/dL (0.2-1.0); Total Protein 7.4 g/dL (6.4-8.2)
[2021-11-28] MEDS ORDERED: MORPHINE SULFATE INJ 2 MG/ml SYRG IV PRN
[2021-11-28] MEDS ORDERED: NITROGLYCERIN 0.4 MG SL TAB SL PRN
[2021-11-28] MEDS ORDERED: ONDANSETRON HCL 4 MG/2 ML VIAL IV PRN
[2021-11-28] MEDS ORDERED: DOCUSATE SOD 100 MG CAP PO PRN
[2021-11-28] MEDS: SODIUM CHLOR 0.9% PF (SALINE LOCK) 10ML VIAL/SYR IV SCH ×3 (06:08→21:34)
[2021-11-28 06:45] LABS: Basophils # (auto) 0 10 ^3/uL (0-0.2); Basophils % (auto) 0.7 % (0.0-2.0); Eosinophils # (auto) 0.2 10 ^3/uL (0-0.8); Eosinophils % (auto) 3.7 % (0.0-7.0); Hematocrit 35.6 % (36.0-46.0); Hemoglobin 11.9 g/dL (12.2-16.2); Lymphocytes # (auto) 1.5 10 ^3/uL (0.4-5.4); Lymphocytes % (auto) 33.8 % (10.0-50.0); Mean Corpuscular Hgb Conc. 33.4 g/dL (32.0-36.0); Mean Corpuscular Volume 95.9 fL (80.0-100.0); Monocytes # (auto) 0.3 10 ^3/uL (0-1.3); Monocytes % (auto) 7.6 % (0.0-12.0); Neutrophils # (auto) 2.4 10 ^3/uL (1.6-8.6); Neutrophils % (auto) 54.2 % (37.0-80.0); Nucleated Red Blood Cells % 0.1 %; Red Blood Cells 3.71 10^6/uL (4.0-5.20); White Blood Cell 4.4 10^3/uL (4.4-10.8)
[2021-11-28 06:55] LABS: Albumin 3.1 g/dL (3.4-5.0); Calcium 8.8 mg/dL (8.5-10.1); Cholesterol 221 mg/dL (< 200); HDL Cholesterol 77 mg/dL (40-59); LDL Cholesterol 125 mg/dL (< 100); Potassium 3.2 mmol/L (3.5-5.1); Triglycerides 100 mg/dL (< 150)
[2021-11-28 06:58] LABS: BUN/Creatinine Ratio 15.5; Bilirubin, Total 0.4 mg/dL (0.2-1.0); Total Protein 6.7 g/dL (6.4-8.2)
[2021-11-28 09:00] VITALS: BP 137/71
[2021-11-28] MEDS: ASPirin 81 mg TAB PO SCH (10:56)
[2021-11-28] MEDS: HYDROcodone-ACET 5/325MG TAB PO PRN ×4 (10:56→23:01)
[2021-11-28 13:00] VITALS: BP 111/54
[2021-11-28] MEDS: MORPHINE SULFATE INJ 2 MG/ml SYRG IV PRN ×2 (16:01→21:45)
[2021-11-28] MEDS ORDERED: POM (16:44)
[2021-11-28] MEDS ORDERED: POTA10TA51 PO (16:44)
[2021-11-28] MEDS ORDERED: BACL10TA PO (16:44)
[2021-11-28] MEDS ORDERED: SERT-376 PO (16:44)
[2021-11-28] MEDS ORDERED: OXYB5TAB61 PO (16:47)
[2021-11-28] MEDS ORDERED: DICL1GEL72 EX (16:49)
[2021-11-28] MEDS ORDERED: FURO20TA3 PO (16:49)
[2021-11-28] MEDS ORDERED: TOPI50TA53 PO (16:50)
[2021-11-28] MEDS ORDERED: AMIT1TAB34 PO (16:57)
[2021-11-28] MEDS ORDERED: HYDR-4798 PO (16:57)
[2021-11-28] MEDS ORDERED: NALO4SPR2 (16:57)
[2021-11-28] MEDS ORDERED: PANT40TA2 PO (16:57)
[2021-11-28] MEDS ORDERED: AMLO-489 PO (16:57)
[2021-11-28] MEDS ORDERED: ACET650T10 PO (16:57)
[2021-11-28 17:00] VITALS: BP 144/69
[2021-11-28] MEDS: FUROSEMIDE 20 MG TAB PO SCH (18:26)
[2021-11-28] MEDS: BACLOFEN 10 MG TAB PO SCH (21:34)
[2021-11-28] MEDS: ATORVASTATIN 20 MG TAB PO SCH (21:34)
[2021-11-28] MEDS: TOPIRAMATE 25 MG TAB PO SCH (21:35)
[2021-11-28 22:00] VITALS: BP 125/50
[2021-11-28] MEDS ORDERED: BACLOFEN 10 MG TAB PO SCH (22:00)
[2021-11-29] MEDS: MORPHINE SULFATE INJ 2 MG/ml SYRG IV PRN ×2 (04:45→09:19)
[2021-11-29 05:00] VITALS: BP 121/67
[2021-11-29] MEDS: SODIUM CHLOR 0.9% PF (SALINE LOCK) 10ML VIAL/SYR IV SCH ×3 (06:16→22:00)
[2021-11-29] MEDS: FUROSEMIDE 20 MG TAB PO SCH ×2 (06:16→18:20)
[2021-11-29] MEDS: BACLOFEN 10 MG TAB PO SCH ×3 (06:17→22:00)
[2021-11-29] MEDS: HYDROcodone-ACET 5/325MG TAB PO PRN ×2 (06:27→12:38)
[2021-11-29 08:00] VITALS: BP 129/49
[2021-11-29 09:00] VITALS: BP 129/49
[2021-11-29] MEDS ORDERED: POTASSIUM EFFERVESENT TAB 25 MEQ PO ONE ×2 (09:00→10:45)
[2021-11-29] MEDS: OXYBUTYNIN CHL 5 MG TAB PO SCH (09:18)
[2021-11-29] MEDS: ASPirin 81 mg TAB PO SCH (09:18)
[2021-11-29] MEDS: AMITRIPTYLINE HCL 25 MG TAB PO SCH (09:18)
[2021-11-29] MEDS: PANTOPRAZOLE 40 MG TAB PO SCH (09:18)
[2021-11-29] MEDS: SERTRALINE HCL 50 MG TAB PO SCH (09:18)
[2021-11-29 13:00] VITALS: BP 114/60
[2021-11-29 17:00] VITALS: BP 105/41
[2021-11-29] MEDS: POTASSIUM CHL 20 Meq TABLET PO SCH (18:19)
[2021-11-29 22:00] VITALS: BP 126/72
[2021-11-29] MEDS: ATORVASTATIN 20 MG TAB PO SCH (22:00)
[2021-11-29] MEDS: TOPIRAMATE 25 MG TAB PO SCH (22:00)
[2021-11-30] MEDS: ACETAMINOPHEN 325 MG TAB PO PRN ×2 (00:14→06:38)
[2021-11-30 05:00] VITALS: BP 92/44
[2021-11-30] MEDS: SODIUM CHLOR 0.9% PF (SALINE LOCK) 10ML VIAL/SYR IV SCH ×3 (06:36→21:31)
[2021-11-30] MEDS: FUROSEMIDE 20 MG TAB PO SCH ×2 (06:37→18:38)
[2021-11-30] MEDS: BACLOFEN 10 MG TAB PO SCH ×3 (06:38→21:32)
[2021-11-30 08:00] VITALS: BP 104/42
[2021-11-30 08:20] VITALS: BP 104/42
[2021-11-30 09:44] LABS: Calcium 8.6 mg/dL (8.5-10.1); Potassium 3.7 mmol/L (3.5-5.1)
[2021-11-30] MEDS: OXYBUTYNIN CHL 5 MG TAB PO SCH (10:12)
[2021-11-30] MEDS: ASPirin 81 mg TAB PO SCH (10:12)
[2021-11-30] MEDS: AMITRIPTYLINE HCL 25 MG TAB PO SCH (10:12)
[2021-11-30] MEDS: POTASSIUM CHL 20 Meq TABLET PO SCH (10:13)
[2021-11-30] MEDS: PANTOPRAZOLE 40 MG TAB PO SCH (10:13)
[2021-11-30] MEDS: SERTRALINE HCL 50 MG TAB PO SCH (10:13)
[2021-11-30 12:00] VITALS: BP 103/57
[2021-11-30 16:00] VITALS: BP 112/59
[2021-11-30 20:01] LABS: Basophils # (auto) 0 10 ^3/uL (0-0.2); Basophils % (auto) 0.7 % (0.0-2.0); Monocytes # (auto) 0.2 10 ^3/uL (0-1.3); Red Cell Distribution Width 14.4 % (11.8-14.3)
[2021-11-30 20:07] LABS: Eosinophils # (auto) 0.1 10 ^3/uL (0-0.8); Eosinophils % (auto) 2.9 % (0.0-7.0); Hemoglobin 12.2 g/dL (12.2-16.2); Lymphocytes # (auto) 0.5 10 ^3/uL (0.4-5.4); Lymphocytes % (auto) 14.6 % (10.0-50.0); Mean Corpuscular Hemoglobin 32.8 pg (28.0-32.0); Mean Corpuscular Volume 96.5 fL (80.0-100.0); Monocytes % (auto) 6.4 % (0.0-12.0); Neutrophils # (auto) 2.4 10 ^3/uL (1.6-8.6); Neutrophils % (auto) 75.4 % (37.0-80.0); Nucleated Red Blood Cells % 0.1 %; Red Blood Cells 3.73 10^6/uL (4.0-5.20); White Blood Cell 3.1 10^3/uL (4.4-10.8)
[2021-11-30 20:12] LABS: BUN/Creatinine Ratio 18.9; Potassium 4.1 mmol/L (3.5-5.1)
[2021-11-30] MEDS ORDERED: LORazepam 2MG/ML-1ML VIAL IV PRN (21:30)
[2021-11-30] MEDS: ATORVASTATIN 20 MG TAB PO SCH (21:31)
[2021-11-30] MEDS: TOPIRAMATE 25 MG TAB PO SCH (21:31)
[2021-11-30 22:00] VITALS: BP 130/77
[2021-11-30 23:43] LABS: Urine Amorphous Crystal FEW /hpf (None Seen); Urine Bacteria NONE SEEN /hpf (None Seen); Urine Blood Negative /uL (Negative); Urine Specific Gravity 1.015 (1.001-1.035); Urine WBC 1 /hpf (0 - 5)
[2021-12-01] MEDS: HYDROcodone-ACET 5/325MG TAB PO PRN (04:32)
[2021-12-01 05:00] VITALS: BP 166/80
[2021-12-01] MEDS: BACLOFEN 10 MG TAB PO SCH ×3 (05:48→22:24)
[2021-12-01] MEDS: SODIUM CHLOR 0.9% PF (SALINE LOCK) 10ML VIAL/SYR IV SCH ×3 (05:54→22:24)
[2021-12-01] MEDS: FUROSEMIDE 20 MG TAB PO SCH ×2 (05:54→17:43)
[2021-12-01 08:00] VITALS: BP 125/53
[2021-12-01 08:30] VITALS: BP 114/69
[2021-12-01 09:30] LABS: Folate (Folic Acid) > 24.00 ng/mL (5.38-24)
[2021-12-01] MEDS: ASPirin 81 mg TAB PO SCH (11:24)
[2021-12-01] MEDS: OXYBUTYNIN CHL 5 MG TAB PO SCH (11:25)
[2021-12-01] MEDS: POTASSIUM CHL 20 Meq TABLET PO SCH (11:57)
[2021-12-01] MEDS: PANTOPRAZOLE 40 MG TAB PO SCH (11:57)
[2021-12-01] MEDS: SERTRALINE HCL 50 MG TAB PO SCH (11:57)
[2021-12-01 12:30] VITALS: BP 115/52
[2021-12-01 17:00] VITALS: BP 120/71
[2021-12-01 22:00] VITALS: BP 132/75
[2021-12-01] MEDS: TOPIRAMATE 25 MG TAB PO SCH (22:24)
[2021-12-01] MEDS: ATORVASTATIN 20 MG TAB PO SCH (22:24)
[2021-12-02 05:00] VITALS: BP 119/66
[2021-12-02] MEDS: SODIUM CHLOR 0.9% PF (SALINE LOCK) 10ML VIAL/SYR IV SCH (05:38)
[2021-12-02] MEDS: FUROSEMIDE 20 MG TAB PO SCH (05:38)
[2021-12-02] MEDS: BACLOFEN 10 MG TAB PO SCH (05:38)
[2021-12-02] MEDS: HYDROcodone-ACET 5/325MG TAB PO PRN (05:39)
[2021-12-02 08:00] VITALS: BP 107/61
[2021-12-02 09:47] VITALS: BP 107/61
[2021-12-02] MEDS ORDERED: [UNRECOGNIZED DRUG - CODE] PO (10:29)
[2021-12-02] MEDS: SERTRALINE HCL 50 MG TAB PO SCH (10:40)
[2021-12-02] MEDS: OXYBUTYNIN CHL 5 MG TAB PO SCH (10:40)
[2021-12-02] MEDS: ASPirin 81 mg TAB PO SCH (11:18)
[2021-12-02] MEDS: POTASSIUM CHL 20 Meq TABLET PO SCH (11:19)
[2021-12-02] MEDS: PANTOPRAZOLE 40 MG TAB PO SCH (11:19)
[2021-12-02 15:18] VITALS: BP 119/66
== END 2021-12-02 16:32 | disposition home or self-care (01) | DRG 313 ==
LOC: ER 14:57 → TELE 23:55 → TELE-CENTR 11-28 08:40
PROVIDERS: ADMIT Nurse Practitioner Family; ATTEND Internal Medicine
DX: R07.9 Chest pain, unspecified (principal); G92.8 Other toxic encephalopathy; R00.1 Bradycardia, unspecified; E78.5 Hyperlipidemia, unspecified; I10 Essential (primary) hypertension; Z20.822 Contact with and (suspected) exposure to COVID-19; G89.4 Chronic pain syndrome; E87.6 Hypokalemia; F41.9 Anxiety disorder, unspecified; Z96.89 Presence of other specified functional implants; M54.50 Low back pain, unspecified; M25.511 Pain in right shoulder; E53.8 Deficiency of other specified B group vitamins; F17.210 Nicotine dependence, cigarettes, uncomplicated; F32.A Depression, unspecified; Z79.82 Long term (current) use of aspirin; Z79.899 Other long term (current) drug therapy; Z80.3 Family history of malignant neoplasm of breast; Z86.73 Personal history of transient ischemic attack (TIA), and cerebral infarction without residual deficits; Z82.49 Family history of ischemic heart disease and other diseases of the circulatory system; Z83.3 Family history of diabetes mellitus; Z90.710 Acquired absence of both cervix and uterus
CPT/HCPCS: 36415; 70450; 71045; 80048; 80053; 80061; 81001; 82607; 82746; 84443; 84484; 85025; 85379; 93005; 95819; 97163; G0378

== ENCOUNTER 2023-03-24 23:16 | Emergency (ER) | payer MEDICARE ==
[~2023-03-24] VITALS: Ht 165.1 cm; Wt 55.0 kg
[~2023-03-24 23:16] MED LIST changes: +ACET650T10 PO; +AMIT10TA12 PO; +AMLO1TAB22 PO; +BACL10TA PO; +DICL1GEL72 EX; +FURO20TA3 PO; +GABA-1308 PO; -GABA100C9 PO; +HYDR-4798 PO; +METH-1181 PO; -METH500T22 PO; +NALO4SPR2; +OXYB5TAB10 PO; +PANT40TA2 PO; +POTA10TA51 PO; +SERT-376 PO; +[UNRECOGNIZED DRUG - CODE] PO
[2023-03-24 23:40] VITALS: PULSE 60; RESP 15; O2SAT 97
[2023-03-24] MEDS ORDERED: FAMOTIDINE (10MG/ML) 2ML VL IV ONE (23:45)
[2023-03-24] MEDS ORDERED: DexAMETHasone SOD PHOS 10MG/1ML VIAL INJ IV ONE (23:45)
[2023-03-24] MEDS ORDERED: diphenhdrAMINE HCL 50 MG/1 ML VL IV ONE (23:45)
[2023-03-24 23:52] LABS: Basophils # (auto) 0 10 ^3/uL (0-0.2); Basophils % (auto) 0.5 % (0.0-2.0); Eosinophils # (auto) 0.2 10 ^3/uL (0-0.8); Eosinophils % (auto) 3.7 % (0.0-7.0); Hematocrit 36.7 % (36.0-46.0); Hemoglobin 12.6 g/dL (12.2-16.2); Lymphocytes # (auto) 2.4 10 ^3/uL (0.4-5.4); Lymphocytes % (auto) 49.7 % (10.0-50.0); Mean Corpuscular Hemoglobin 32.4 pg (28.0-32.0); Mean Corpuscular Hgb Conc. 34.4 g/dL (32.0-36.0); Mean Corpuscular Volume 94.2 fL (80.0-100.0); Monocytes # (auto) 0.4 10 ^3/uL (0-1.3); Monocytes % (auto) 7.8 % (0.0-12.0); Neutrophils # (auto) 1.8 10 ^3/uL (1.6-8.6); Neutrophils % (auto) 38.3 % (37.0-80.0); Nucleated Red Blood Cells % 0.1 %; Red Blood Cells 3.89 10^6/uL (4.0-5.20); Red Cell Distribution Width 13.9 % (11.8-14.3); White Blood Cell 4.8 10^3/uL (4.4-10.8)
[2023-03-25 00:09] LABS: Albumin 4.5 g/dL (3.2-4.8); Alkaline Phosphatase 91 U/L (46-116); Anion Gap 7 (5-15); Aspartate Aminotransferase 13 U/L (13-40); BUN/Creatinine Ratio 13.9 (10.0-20.0); Blood Urea Nitrogen 15 mg/dL (9-23); Calcium 9.5 mg/dL (8.7-10.4); Carbon Dioxide 27 mmol/L (20-30); Chloride 103 mmol/L (98-107); Glucose 112 mg/dL (74-106); Magnesium 1.9 mg/dL (1.6-2.6); Potassium 3.3 mmol/L (3.5-5.1); Sodium 137 mmol/L (136-145)
[2023-03-25 00:10] LABS: Bilirubin, Total 0.3 mg/dL (0.2-1.0); Total Protein 7.6 g/dL (5.7-8.2)
[2023-03-25 00:17] LABS: Alanine Aminotransferase < 9 U/L (7-40)
[2023-03-25 01:17] LABS: Urine Bacteria MANY /hpf (None Seen); Urine Blood Negative /uL (Negative); Urine Clarity Clear (Clear); Urine Color Colorless (Yellow); Urine Hyaline Cast FEW /lpf (0 - 2); Urine Protein, UAD Negative (Negative); Urine Specific Gravity 1.007 (1.001-1.035); Urine Urobilinogen Normal (Negative); Urine WBC 1 /hpf (0 - 5)
[2023-03-25] MEDS ORDERED: LACT10SO3 PO (01:40)
[2023-03-25 01:52] VITALS: BP 104/66; PULSE 60; RESP 10; O2SAT 93
== END 2023-03-25 01:40 | disposition home or self-care (01) ==
LOC: ER 23:16
DX: R09.89 Other specified symptoms and signs involving the circulatory and respiratory systems (principal); K59.00 Constipation, unspecified; E78.5 Hyperlipidemia, unspecified; I10 Essential (primary) hypertension; F17.210 Nicotine dependence, cigarettes, uncomplicated; Z90.710 Acquired absence of both cervix and uterus; Z86.73 Personal history of transient ischemic attack (TIA), and cerebral infarction without residual deficits
CPT/HCPCS: 36415; 71045; 80053; 81001; 83735; 83880; 84484; 85025; 93005; 96374; 96375; 99285; J1100; J1200; J3490